=== PATIENT | female | born 1985 | race Two or more races ===

== ENCOUNTER 2023-03-13 21:56 | Emergency (ER) | payer OTHER ==
[2023-03-13] MEDS ORDERED: LIDOCAINE PATCH REMOVAL MC SCH (22:00)
[2023-03-13 22:12] VITALS: BP 121/73; PULSE 85; RESP 18; TEMP 98; BMI 45.1
[2023-03-13] MEDS ORDERED: METHOCARBAMOL 500 MG TABLET PO ONE (22:46)
[2023-03-13] MEDS ORDERED: LIDOCAINE 5% TOPICAL PATCH TP ONE (22:46)
[2023-03-13] MEDS ORDERED: METHOCARBAMOL 500 MG TABLET ONE (22:49)
[2023-03-13] MEDS ORDERED: LIDOCAINE 5% TOPICAL PATCH ONE (22:50)
== END 2023-03-13 23:11 | disposition home or self-care (01) ==
LOC: JERFT 21:56
DX: M54.9 Dorsalgia, unspecified (principal)
CPT/HCPCS: 99283-25

== ENCOUNTER 2024-06-05 05:02 | Inpatient (IN) | payer BC, OTHER ==
[2024-06-01 12:10] VITALS: BMI 41.9
[2024-06-05] MEDS ORDERED: CEFAZOLIN SODIUM 2 GM in DEXTROSE 5%-WATER 100 ML IVPB ONE (13:00)
[2024-06-05] MEDS ORDERED: INDOCYANINE GREEN 25 MG/10 ML VIAL IVPUSH ONE (13:41)
[2024-06-05] MEDS ORDERED: cefOXitin SODIUM 2 GM VIAL (RESTRICTED TO ID) IVPB ONE (13:42)
[2024-06-05] MEDS ORDERED: HEPARIN NA (PORCINE) 5,000 UNITS/ML 1ML VIAL ONE (13:42)
[2024-06-05] MEDS ORDERED: BACITRACIN ZINC 15 GM TUBE TOPICAL OINTMENT ONE (13:42)
[2024-06-05] MEDS ORDERED: BUPIVACAINE HCL/PF 0.25% (2.5MG/ML) 10 ML VIAL ONE (13:42)
[2024-06-05] MEDS ORDERED: MIDAZOLAM HCL 2 MG/2 ML SINGLE DOSE VIAL ONE (14:56)
[2024-06-05] MEDS ORDERED: ROCURONIUM BROMIDE 50 MG/5 ML SYRINGE ONE ×4 (14:56→17:11)
[2024-06-05] MEDS: cefOXitin SODIUM 2 GM VIAL (RESTRICTED TO ID) IVPB ONE (15:31)
[2024-06-05] MEDS ORDERED: PROPOFOL 20 ML ONE ×2 (17:25→19:40)
[2024-06-05] MEDS ORDERED: HYDROmorphone HCl 2 MG/ML VIAL ONE (17:26)
[2024-06-05] MEDS ORDERED: SUGAMMADEX SODIUM 200 MG/2 ML VIAL ONE (18:49)
[2024-06-05] MEDS ORDERED: HYDROmorphone HCl 2 MG/ML VIAL IVPB PRN (20:07)
[2024-06-05] MEDS ORDERED: ONDANSETRON 4 MG/2 ML VIAL IVPUSH PRN (20:09)
[2024-06-05] MEDS: LACTATED RINGERS SOLUTION 1,000 ML IV SCH (21:17)
[2024-06-05] MEDS: CEFOXITIN SODIUM 1 GM in DEXTROSE 5%-WATER 100 ML IVPB SCH (21:43)
[2024-06-05] MEDS: HYDROmorphone HCL CARPU-JECT 2 MG/1 ML DISP.SYRIN IVPB PRN (22:58)
[2024-06-06] MEDS: ACETAMINOPHEN 1000 MG/100 ML BAG IVPB SCH (00:44)
[2024-06-06] MEDS: cefOXitin SODIUM 2 GM VIAL (RESTRICTED TO ID) IVPB ONE (04:17)
[2024-06-06] MEDS: SCOPOLAMINE HYDROBROMIDE 1 PATCH PATCH.TD72 TD ONE (04:17)
[2024-06-06] MEDS: HEPARIN NA (PORCINE) 5,000 UNITS/ML 1ML VIAL SQ ONE (04:17)
[2024-06-06] MEDS: GABAPENTIN 300 MG CAPSULE PO ONE (04:17)
[2024-06-06] MEDS: ACETAMINOPHEN 1000 MG/100 ML BAG IVPB ONE (04:17)
[2024-06-06] MEDS: oxyCODONE HCL 5 MG TABLET PO PRN (09:28)
[2024-06-06] MEDS: LACTATED RINGERS SOLUTION 1,000 ML IV SCH ×2 (09:30→13:49)
[2024-06-06] MEDS: ENOXAPARIN NA (PORCINE) 40 MG/0.4 ML DISP.SYRIN SQ SCH (09:30)
[2024-06-06 09:54] LABS: BASO % 0.1 % (0-2.0); HEMATOCRIT 35.5 % (32.4-45.2); HEMOGLOBIN 11.9 GM/dL (10.7-15.3); LYMPH % 7.2 % (8-40); MCH 29.4 pg (25.7-33.7); MCHC 33.4 g/dl (32.0-36.0); MEAN PLT VOLUME 9.5 fl (7.5-11.1); MONO % 7.9 % (3.8-10.2); NEUT % 84.8 % (42.8-82.8); PLATELET COUNT 243 10^3/uL (134-434); RBC 4.03 M/mm3 (3.60-5.2); RDW 14.4 % (11.6-15.6); WHITE BLOOD COUNT 18.2 K/mm3 (4.0-10.0)
[2024-06-06 10:05] LABS: POTASSIUM 4.2 mmol/L (3.5-5.1)
[2024-06-06 10:08] LABS: BLOOD UREA NITROGEN 8.9 mg/dL (7-18); CALCIUM 8.9 mg/dL (8.5-10.1)
[2024-06-06 10:12] LABS: CREATININE 0.8 mg/dL (0.55-1.3); PHOSPHOROUS 2.9 mg/dL (2.5-4.9)
[2024-06-06] MEDS ORDERED: ALBUTEROL SO4 HFA INHALER IH PRN (11:59)
[2024-06-06] MEDS: SIMETHICONE 80 MG TAB.CHEW (FP) PO ONE (19:02)
[2024-06-07 09:35] LABS: BASO % 0.3 % (0-2.0); EOS % 0.3 % (0-4.5); LYMPH % 14.7 % (8-40); MCH 29.6 pg (25.7-33.7); MCHC 33.2 g/dl (32.0-36.0); MEAN CELL VOLUME 89.1 fl (80-96); MEAN PLT VOLUME 9.5 fl (7.5-11.1); MONO % 8.2 % (3.8-10.2); NEUT % 76.5 % (42.8-82.8); PLATELET COUNT 232 10^3/uL (134-434); RBC 3.71 M/mm3 (3.60-5.2); RDW 14.4 % (11.6-15.6); WHITE BLOOD COUNT 13.4 K/mm3 (4.0-10.0)
[2024-06-07 09:58] LABS: POTASSIUM 4.1 mmol/L (3.5-5.1)
[2024-06-07 10:00] LABS: CALCIUM 8.6 mg/dL (8.5-10.1)
[2024-06-07 10:01] LABS: BLOOD UREA NITROGEN 6.8 mg/dL (7-18); MAGNESIUM 1.9 mg/dL (1.8-2.4)
[2024-06-07 10:04] LABS: CREATININE 0.7 mg/dL (0.55-1.3)
[2024-06-07] MEDS: NAPH,MB-DB/K PH,MBDB POWDER PACKET PO SCH (17:18)
[2024-06-07] MEDS: SIMETHICONE 80 MG TAB.CHEW (FP) PO PRN (21:03)
[2024-06-08 09:39] LABS: BASO % 0.4 % (0-2.0); EOS % 2.3 % (0-4.5); HEMOGLOBIN 11.8 GM/dL (10.7-15.3); LYMPH % 23.8 % (8-40); MCH 29.5 pg (25.7-33.7); MCHC 33.6 g/dl (32.0-36.0); MEAN CELL VOLUME 87.7 fl (80-96); MEAN PLT VOLUME 9.1 fl (7.5-11.1); MONO % 6.9 % (3.8-10.2); NEUT % 66.6 % (42.8-82.8); PLATELET COUNT 252 10^3/uL (134-434); RBC 3.99 M/mm3 (3.60-5.2); RDW 14.5 % (11.6-15.6); WHITE BLOOD COUNT 9.4 K/mm3 (4.0-10.0)
[2024-06-08 10:09] LABS: CALCIUM 9.1 mg/dL (8.5-10.1)
[2024-06-08 10:10] LABS: MAGNESIUM 1.9 mg/dL (1.8-2.4)
[2024-06-08 10:13] LABS: CREATININE 0.7 mg/dL (0.55-1.3)
[2024-06-08 10:14] LABS: PHOSPHOROUS 3.1 mg/dL (2.5-4.9)
[2024-06-08] MEDS: ACETAMINOPHEN 500 MG TABLET (FP) PO SCH (13:58)
[2024-06-09 11:21] VITALS: BP 122/67; PULSE 78; RESP 20; TEMP 98.8
== END 2024-06-09 15:41 | disposition home or self-care (01) | DRG 330 ==
LOC: J2C 05:02 → J8W 22:13
PROVIDERS: ADMIT Surgery
PROC: 8E0W4CZ Robotic Assisted Procedure of Trunk Region, Percutaneous Endoscopic Approach (ICD-10-PCS; 2024-06-05)
PROC: 0DTF4ZZ Resection of Right Large Intestine, Percutaneous Endoscopic Approach (ICD-10-PCS; principal; 2024-06-05 13:30)
DX: D12.0 Benign neoplasm of cecum (principal); Z68.41 Body mass index [BMI] 40.0-44.9, adult; K63.89 Other specified diseases of intestine; E66.01 Morbid (severe) obesity due to excess calories; E78.5 Hyperlipidemia, unspecified
CPT/HCPCS: 36415; 80048; 81025; 83735; 84100; 85025; 86140; 86850; 86900; 86901; 88307-TC; 88309-TC; 88329; 94760; 97116-GP; 97161-GP; J0131; J1644